=== PATIENT | male | born 1945 | race Caucasian/White ===

== ENCOUNTER → 2017-01-02 | Outpatient (CLI) | payer BC, OTHER | LOC: CIMAGING 08:38 | PROVIDERS: ATTEND Internal Medicine | DX: B18.2 Chronic viral hepatitis C (principal); E88.89 Other specified metabolic disorders | CPT/HCPCS: 76705-PO ==

== ENCOUNTER → 2017-07-16 | Outpatient (CLI) | payer BC, OTHER | LOC: FIMAGING 07:37 | PROVIDERS: ATTEND Physician Assistant | DX: B19.20 Unspecified viral hepatitis C without hepatic coma (principal); K76.9 Liver disease, unspecified; K74.60 Unspecified cirrhosis of liver ==

== ENCOUNTER → 2017-07-29 | Outpatient (CLI) | payer BC, OTHER ==
[~2017-07-29] MED LIST: GADOBUTROL 10 ML VIAL IVP ONE
== END ==
LOC: FIMAGING 06:24
PROVIDERS: ATTEND Physician Assistant
DX: K74.60 Unspecified cirrhosis of liver (principal); K76.9 Liver disease, unspecified
CPT/HCPCS: A9585

== ENCOUNTER → 2017-11-07 | Outpatient (CLI) | payer BC, OTHER | LOC: FIMAGING 06:36 | PROVIDERS: ATTEND Physician Assistant | DX: K76.9 Liver disease, unspecified (principal); B19.20 Unspecified viral hepatitis C without hepatic coma | CPT/HCPCS: 82565-PO; A9585 ==

== ENCOUNTER 2017-12-16 10:46 | Day surgery (SDC) | payer BC, OTHER ==
[2017-12-16] MEDS ORDERED: LR 1,000 ML IV ONE (11:39)
[2017-12-16 11:53] LABS: INR 1.04 (0.83-1.16); PROTIME(PATIENT) 13.8 SEC (12.0-15.0)
[2017-12-16] MEDS ORDERED: PROPOFOL/EMULSION 500 MG/50 ML BOTTLE IV ONE (12:07)
[2017-12-16] MEDS ORDERED: PROPOFOL 200 MG/20 ML VIAL ONE (12:07)
[2017-12-16] MEDS ORDERED: LIDOCAINE 1% 300 MG/30 ML SDV ONE (12:28)
[2017-12-16] MEDS ORDERED: ROCURONIUM 100 MG/10 ML VIAL ONE (12:40)
[2017-12-16] MEDS ORDERED: SUCCINYLCHOLINE CHLORIDE 200 MG/10 ML VIAL ONE (12:40)
--- NOTE | 2017-12-16 12:40 | PDANEPAE ---
ANE History of Present Illness CT guided micro wave liver lesion ANE Past Medical History - Cardiovascular History Hx Hypertension: Yes Hx Arrhythmias: No Hx Chest Pain: No Hx Coronary Artery / Peripheral Vascular Disease: No Hx CHF / Valvular Disease: No Hx Palpitations: No - Pulmonary History Hx COPD: No Hx Asthma/Reactive Airway Disease: No Hx Recent Upper Respiratory Infection: No Hx Oxygen in Use at Home: No Hx Sleep Apnea: No Sleep Apnea Screening Result - Last Documented: Positive - Neurologic History Hx Cerebrovascular Accident: No Hx Seizures: No Hx Dementia: No - Endocrine History Hx Diabetes: No Obesity: no - Renal History Hx Renal Disorders: No - Liver History Hx Hepatic Disorders: Yes Hepatic History Comment: Hx Hep C (cured). Liver lesions - Neurological & Psychiatric Hx Hx Neurological and Psychiatric Disorders: No - Cancer History Hx Cancer: Yes Cancer History Comment: Liver lesions - Congenital Disorder History Hx Congenital Disorders: Yes Congenital History Comment: Bicuspid valve disorder - GI History GERD: no, mild Hx Gastrointestinal Disorders: No - Chronic Pain History Chronic Pain: No - Surgical History Prior Surgeries: AVR-05/06/2012 ANE Review of Systems Review of Systems: - Exercise capacity METS (RN): 4 METS ANE Patient History - Allergies Allergies/Adverse Reactions: ANIMAL DANDER Allergy (Mild, Uncoded 04/29/12 15:20) NASAL CONGESTION HAYFEVER Allergy (Mild, Uncoded 04/29/12 15:20) NASAL CONGESTION - Home Medications Home medications: home medication list seen and reviewed Home Medications: Aspirin 81mg (*) 81 mg PO DAILY 12/09/17 [Last Taken 12/13/17] Metoprolol Tartrate 12.5 mg PO BID 12/09/17 [Last Taken 12/16/17] Vitamin E PO DAILY 12/09/17 [Last Taken 12/16/17] B Complex with Vitamin C DAILY 12/16/17 [Last Taken 12/16/17] Centrum Silver DAILY 12/16/17 [Last Taken 12/15/17] [place] Bark Extact DAILY 12/16/17 [Last Taken 12/15/17] - Smoking Hx Smoking Status: Former smoker - Family Anes Hx Family Hx Anesthesia Complications: None ANE Labs/Vital Signs - Labs Result Diagrams: 12/16/17 11:30 - Vital Signs Blood Pressure: 147/89 Heart Rate: 61 Respiratory Rate: 16 O2 Sat (%): 93 Height: 174.63 cm Weight: 75.296 kg ANE Physical Exam - Airway Mallampati Score: Class 2 Mouth exam: normal dental/mouth exam - Pulmonary Pulmonary: no respiratory distress, no rales or rhonchi - Cardiovascular Cardiovascular: regular rate and rhythym, no murmur, rub, or gallop - ASA Status ASA Status: II ANE Anesthesia Plan Anesthesia Plan: general endotracheal anesthesia
[2017-12-16] MEDS ORDERED: IOPAMIDOL (ISOVUE-300) 150 ML BTL ONE (13:02)
[2017-12-16] MEDS ORDERED: fentaNYL 250 MCG/5 ML INJ ONE (13:03)
--- NOTE | 2017-12-16 13:14 | PDRADPRE ---
Radiology History & Physical Indication for procedure: liver disease, other (HCC) Home medications: Aspirin 81mg (*) 81 mg PO DAILY 12/09/17 [Last Taken 12/13/17] Metoprolol Tartrate 12.5 mg PO BID 12/09/17 [Last Taken 12/16/17] Vitamin E PO DAILY 12/09/17 [Last Taken 12/16/17] B Complex with Vitamin C DAILY 12/16/17 [Last Taken 12/16/17] Centrum Silver DAILY 12/16/17 [Last Taken 12/15/17] [place] Bark Extact DAILY 12/16/17 [Last Taken 12/15/17] Allergies/Adverse Reactions: ANIMAL DANDER Allergy (Mild, Uncoded 04/29/12 15:20) NASAL CONGESTION HAYFEVER Allergy (Mild, Uncoded 04/29/12 15:20) NASAL CONGESTION Mental status: A&Ox3 Heart exam: regular rate and rhythm Lungs exam: clear to auscultation Mallampati Score: Class 2
[2017-12-16] MEDS ORDERED: levOFLOXACIN 500 MG/DEXTROSE 100 ML IV ONE (13:30)
[2017-12-16] MEDS ORDERED: SUGAMMADEX SODIUM 200 MG/2 ML VIAL IVP ONE ×3 (15:18→16:06)
[2017-12-16] MEDS ORDERED: HYDROmorphONE/DILAUDID 2 MG/ML INJ IVP PRN (15:44)
[2017-12-16] MEDS ORDERED: oxyCODONE IR 5 MG TAB PO PRN (15:44)
[2017-12-16] MEDS ORDERED: PROMETHAZINE HCL 25 MG/ML INJ IVP PRN (15:44)
[2017-12-16] MEDS ORDERED: fentaNYL 100 MCG/2 ML INJ IVP PRN (15:44)
[2017-12-16] MEDS ORDERED: ONDANSETRON 4 MG/2 ML VIAL IVP PRN (15:44)
[2017-12-16] MEDS ORDERED: NALOXONE HCL 0.4 MG/ML INJ IVP PRN (15:44)
[2017-12-16] MEDS ORDERED: ACETAMINOPHEN 500 MG TAB PO PRN (15:44)
[2017-12-16] MEDS ORDERED: LABETALOL HCL 5 MG/ML 20 ML MDV IVP PRN (15:44)
[2017-12-16] MEDS ORDERED: HYDROCODONE/APAP 5/325 TAB PO PRN (15:44)
--- NOTE | 2017-12-16 15:45 | POSTANESTH ---
Post Anesthetic Evaluation Cardiovascular Status: Normal, Stable Respiratory Status: Normal, Stable Level of Consciousness/Mental Status: Can Participate in Eval Pain Control: Adequate, Prn Tx Ordered Nausea/Vomiting Control: Adequate, Prn Tx Ordered Complications Possibly Related to Anesthesia: None Noted
--- NOTE | 2017-12-16 15:51 | PDRADPN ---
Radiology Procedure Note Date of Procedure: 12/16/17 Radiologist: Pierre Belcher Anesthesia: GET(General Endotracheal) Pre-op Diagnosis: HCC Post-op Diagnosis: HCC Indication: HCC Procedure: CT guided MWA Finding(s): Seg 7 HCC successfully ablated with single microwave antenna. No complications. Inf/Abcess present in the surg proc area at time of surgery?: No
[2017-12-16] MEDS ORDERED: hydrALAZINE 20 MG/ML VIAL IVP ONE (16:50)
[2017-12-16] MEDS ORDERED: hydrALAZINE 20 MG/ML VIAL ONE (17:00)
[2017-12-16 17:33] VITALS: BP 163/94
[2017-12-16] MEDS ORDERED: ONDANSETRON 4 MG/2 ML VIAL ONE (21:51)
== END 2017-12-16 17:32 | disposition home or self-care (01) ==
LOC: FIMAGING 10:46
PROVIDERS: ATTEND Radiology Vascular & Interventional Radiology
PROC: 0F5 Hepatobiliary System and Pancreas, Destruction (ICD-10-PCS; principal; 2017-12-16 12:45)
DX: C22.8 Malignant neoplasm of liver, primary, unspecified as to type (principal)
CPT/HCPCS: J0330; J0360; J1956; J2405; J2704; J3010; Q9967

== ENCOUNTER → 2018-02-17 | Outpatient (CLI) | payer BC, OTHER | LOC: FIMAGING 15:34 | PROVIDERS: ATTEND Internal Medicine | DX: R93.2 Abnormal findings on diagnostic imaging of liver and biliary tract (principal); N28.1 Cyst of kidney, acquired; Z85.05 Personal history of malignant neoplasm of liver | CPT/HCPCS: A9585 ==

== ENCOUNTER → 2018-03-06 | Outpatient (CLI) | payer BC, OTHER | LOC: FIMAGING 14:56 | PROVIDERS: ATTEND Internal Medicine | DX: R07.9 Chest pain, unspecified (principal); I25.10 Atherosclerotic heart disease of native coronary artery without angina pectoris; Z85.05 Personal history of malignant neoplasm of liver ==